=== PATIENT | male | born 1955 | race Caucasian/White ===

== ENCOUNTER 2017-09-20 13:47 | Emergency (ER) | payer OTHER, SELFPAY ==
[2017-09-20 13:48] VITALS: BP 145/93; PULSE 82; RESP 16; TEMP 36.7; O2SAT 96; BMI 25.4
--- NOTE | 2017-09-20 14:30 | RAD_ITS ---
STUDY: X-RAY - LEFT HAND REASON FOR EXAM: Male, 61 years old. Address post fall on a cap this 2 weeks ago concerning performed body TECHNIQUE: 3 view(s) of the hand. COMPARISON: None. FINDINGS: Normal radiocarpal articulation. Normal distal radioulnar joint. Normal visualized carpal bones. Normal carpal articulations Normal carpometacarpal articulation of the thumb. Normal second through fifth carpometacarpal joints. Normal metacarpi. 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 Normal interphalangeal joint of the thumb. 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 A radiopaque foreign body is not definitively identified. There does appear to be mild soft tissue swelling. Normal metacarpophalangeal joints of the second through fifth fingers. Normal proximal and distal interphalangeal joints of the second through fifth fingers. Normal phalanges of the second through fifth fingers. The soft tissue structures are unremarkable. RAD/Hand Min 3 Views IMPRESSION: Arthrosis. 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 No visualized radiopaque foreign body. Mild soft tissue swelling. Electronically Signed: Angélica Mendoza MD at 16:19 EDT Tel , Service support ,
--- NOTE | 2017-09-20 14:41 | ED.DCSUM_ITS ---
- ER Visit Summary Date of Service: 09/20/17 Chief Complaint: [] 2 week old foreign body left thumb History of Present Illness: The patient is a 61 M [] patient reports 2 weeks ago he was hiking in [place] and a cactus spine struck him to the right thumb possibly 2 he believes it is retained, he is [id number] he reports intermittent drainage to the area no redness or warmth he reports that lesion simply will not improve and he presents for evaluation his other complaints Physical Examination: [] There is a blister type lesion likely represents possible insertion point for 1 or 2 of these cactus spines, there is some nodularity to the flexor surface of the thumb but no warmth no redness he is able to flex at the IP joint and MCP joint the nail is intact there is no signs of gross tenosynovitis or felon or anything acute Test Results: [] Emergency Department Course and Treatment: [] All the above the patient have explained this lesions been there for 2 weeks it is best that he be seen by hand services for further management and x-rays be obtained I recommended antibiotics but he declined that he will be referred to Dr. ma be the x-ray will be obtained he will be given a copy of the film and he will see Dr. stovall for outpatient management and return for change in symptoms Treatment Plan: [] Disposition: [] Home stable Impression: [] 2-week-old retained foreign body as above left thumb This note was generated with [employer] dictation software. It may contain incorrect words, spelling, and punctuation that were not noted in review of the chart prior to signing ED Disposition - Plan for ED Patient: Chief Complaint: Foreign Body Referrals: Tolu Mcmillan MD [Primary Care Provider] -
--- NOTE | 2017-09-20 14:41 | ED.DEP ---
ED Disposition - Plan for ED Patient: Chief Complaint: Foreign Body Instructions: ED Foreign Body Soft Tissue Referrals: Tolu Mcmillan MD [Primary Care Provider] - Bob Flowers MD [STAFF PHYSICIAN] - Dennis Palacio MD [STAFF PHYSICIAN] - Additional Instructions: Follow-up with Dr. Green or Dr. Palacio for further evaluation of left thumb
== END 2017-09-20 15:18 | disposition home or self-care (01) ==
LOC: ED 14:47
PROVIDERS: Emergency Provider Emergency Medicine; Family Provider Family Medicine; PCP Family Medicine
DX: S60.352A Superficial foreign body of left thumb, initial encounter (principal); W60.XXXA Contact with nonvenomous plant thorns and spines and sharp leaves, initial encounter; Y93.01 Activity, walking, marching and hiking; Y92.9 Unspecified place or not applicable
CPT/HCPCS: 73130; 99282

== ENCOUNTER 2024-11-17 11:05 | Emergency (ER) | payer MEDICARE, OTHER, SELFPAY ==
[2024-11-17 11:05] VITALS: BP 108/60; PULSE 65; RESP 16; TEMP 36.6; O2SAT 97; BMI 25.9
--- NOTE | 2024-11-17 11:19 | EDS_ITS ---
HPI <CONCEPCIÓN Gaitan - Last Filed: 11/17/24 12:40> History of Present Illness Chief Complaint: Laceration Narrative Narrative: Patient resenting today due to a laceration to his left index finger after he was working with a boom lift and was trying to adjust the lever when it snapped and cut his finger. He is not on any blood thinners, his tetanus is not up-to-date, he is left-handed, he denies any other injury. PFSH <CONCEPCIÓN Gaitan - Last Filed: 11/17/24 12:40> [facility] Medical History no medical history Home Medications ?Medication ?Instructions ?Recorded ?Last Taken ?Type NK 09/20/17 Unknown History Allergy/AdvReac Type Severity Reaction Status Date / Time No Known Allergies Allergy Verified 11/17/24 11:05 Social History Smoking Status: Never smoker ROS <CONCEPCIÓN Gaitan - Last Filed: 11/17/24 12:40> ROS ED Constitutional Constitutional ED: Denies chills or fever(s) Cardiovascular Cardiovascular: Denies chest pain Respiratory/Chest Respiratory/Chest: Denies dyspnea Musculoskeletal Musculoskeletal: Denies arthralgias Integumentary Reports laceration Neurologic Neurologic: Denies paresthesias EXAM <CONCEPCIÓN Gaitan - Last Filed: 11/17/24 12:40> Physical Exam Const Vital Signs: 11/17/24 11:05 11/17/24 12:35 Temperature 97.9 F Temperature Source Oral Pulse Rate 65 67 Respiratory Rate 16 16 Blood Pressure 108/60 112/74 Blood Pressure Mean 76 86 Pulse Ox 97 99 Oxygen Delivery Method Room Air Positive well nourished, well developed and no apparent distress General Appearance ED: well developed HEENT Reports normocephalic and head/scalp atraumatic Mouth ED: Yes moist mucous membranes normal Eyes PERRL and EOMs intact bilaterally Neck full ROM and supple Chest Wall inspection of chest normal Resp normal respiratory effort and clear to auscultation bilaterally Cardio regular rate and regular rhythm Back/Spine normal ROM and normal to inspection Extremity full ROM Extremity Narrative: 2.5 cm full-thickness linear laceration to the palmar aspect of the left middle phalanx index finger. Left radial pulse 2+, good cap refill, sensation intact. Patient can flex and extend at the MCP, PIP, DIP joints, no obvious tendon injury Neuro oriented x3, CN's II-XII intact bilaterally, moves all extremities, no focal motor deficits and no sensory deficits noted Sensorium / Orientation: awake and alert Psych mental status grossly normal and thought process normal Skin Skin Narrative: Aside from laceration to the index finger no other obvious rashes or lesions noted. <Dr. Dm Burrows MD - Last Filed: 11/17/24 11:54> Physical Exam Const Vital Signs: 11/17/24 11:05 11/17/24 12:35 Temperature 97.9 F Temperature Source Oral Pulse Rate 65 67 Respiratory Rate 16 16 Blood Pressure 108/60 112/74 Blood Pressure Mean 76 86 Pulse Ox 97 99 Oxygen Delivery Method Room Air PROC <CONCEPCIÓN Gaitan - Last Filed: 11/17/24 12:40> Procedures Lacerations Laceration: Length: 2.5 cm Depth: Sub Q Shape: Linear Prep: Chlorhexadine Laceration repair: Digital block, Irrigated, Lidocaine and Skin sutures Number of Sutures/Bryson: 7 Suture Information: Ethilon, Simple and 4-0 Comment: Wound then bandaged with bacitracin ointment MDM <CONCEPCIÓN Gaitan - Last Filed: 11/17/24 12:40> [facility] Narrative Medical decision making narrative: Patient presenting today with a laceration to his left index finger after getting it caught on a latch from a boom lift. This will require suture repair. X-ray obtained to assess for fracture and is negative. There is no active bleeding. No tendon injury. He tolerated procedure well. He is to have sutures removed in 7 days. Wound care instructions discussed with him. He will be discharged home in stable condition. I have personally performed a face to face assessment of the patient and have reviewed the SHAWN Note. I performed a substantive portion of the visit including all aspects of the following. My raines findings include: History is [68-year-old male [id number] was working at home cleaning out his gutters. He was using a broom lift. Latch on it released and lacerated his left index finger. He is left-hand dominant. Unsure of his last tetanus was to be updated. Denies any other injuries or complaints.] Exam is [well-appearing 60-year-old male. Vital signs stable afebrile. No distress. H EENT exam pupils round reactive light. No trauma nose face or scalp. Neck nontender. Back nontender. Lungs clear equal symmetrical. Heart regular rhythm rate about 65. No murmur. Chest wall ribs nontender. Abdomen soft nontender. Moving all 4 extremities. Neurovascularly intact. Left index finger on the palmar side along the PIP there is a laceration involving the skin and subcu tissue. There is dried blood. Minimal active bleeding. No pulsatile bleeding. No foreign body or infection. He has full extension to all digits of the left hand full flexion. There does not appear to be any bony deformity or tendon laceration. Normal touch sensation and cap refill distally. Otherwise exam unremarkable. He is awake and alert. No focal motor or sensory deficits.] Medical Decision Making [68-year-old left finger laceration x-ray was obtained shows no fracture. No foreign body. Will be locally anesthetized washed out and cleaned well and sutured closed.] Other additions or changes: [None] Radiography X-Ray: Read by ED Physician Diagnostic Testing: Clinical Impression(s) from Imaging Studies Finger X-Ray 11/17/24 11:20 IMPRESSION: No radiopaque foreign body is seen. Mild degenerative changes seen of the visualized left 2nd and 3rd distal interphalangeal joints and of the partially visualized 1st carpal-metacarpal joint. Minimal degenerative changes are seen elsewhere. No fracture or dislocation is noted. If clinical concern persists, short-term follow-up imaging may be obtained to rule out a currently occult fracture. Reading Location: [id number] <Dr. Dm Burrows MD - Last Filed: 11/17/24 11:54> [facility] Narrative Medical decision making narrative: I have personally performed a face to face assessment of the patient and have reviewed the SHAWN Note. I performed a substantive portion of the visit including all aspects of the following. My raines findings include: History is [68-year-old male [id number] was working at home cleaning out his gutters. He was using a broom lift. Latch on it released and lacerated his left index finger. He is left-hand dominant. Unsure of his last tetanus was to be updated. Denies any other injuries or complaints.] Exam is [well-appearing 60-year-old male. Vital signs stable afebrile. No distress. H EENT exam pupils round reactive light. No trauma nose face or scalp. Neck nontender. Back nontender. Lungs clear equal symmetrical. Heart regular rhythm rate about 65. No murmur. Chest wall ribs nontender. Abdomen soft nontender. Moving all 4 extremities. Neurovascularly intact. Left index finger on the palmar side along the PIP there is a laceration involving the skin and subcu tissue. There is dried blood. Minimal active bleeding. No pulsatile bleeding. No foreign body or infection. He has full extension to all digits of the left hand full flexion. There does not appear to be any bony deformity or tendon laceration. Normal touch sensation and cap refill distally. Otherwise exam unremarkable. He is awake and alert. No focal motor or sensory deficits.] Medical Decision Making [68-year-old left finger laceration x-ray was obtained shows no fracture. No foreign body. Will be locally anesthetized washed out and cleaned well and sutured closed.] Other additions or changes: [None] History & Record Review Discussion w/independent historian: Patient Radiography Diagnostic Testing: Clinical Impression(s) from Imaging Studies Finger X-Ray 11/17/24 11:20 IMPRESSION: No radiopaque foreign body is seen. Mild degenerative changes seen of the visualized left 2nd and 3rd distal interphalangeal joints and of the partially visualized 1st carpal-metacarpal joint. Minimal degenerative changes are seen elsewhere. No fracture or dislocation is noted. If clinical concern persists, short-term follow-up imaging may be obtained to rule out a currently occult fracture. Reading Location: [address] Leg index finger x-ray, 3 views, interpreted by myself shows no acute fracture. No dislocation. No foreign body. Soft tissue swelling. Discharge Plan Triage Chief Complaint: Laceration ED Midlevel Provider: Rebecca Ramsay ED Provider: Dm Burrows Dx/Rx/DC Orders Clinical Impression: Finger laceration Instructions: ED Laceration, Hand: All Closures Prescriptions: No Action NK Primary Care Provider: Swati Melo NP Referrals: Swati Melo COMPUTING ARCHITECT, COMPUTING ARCHITECT-C [Primary Care Provider] - 7 Days for suture removal Activity Restrictions/Additional Instructions: Follow-up with your PCP in 7 days for suture removal, return for any signs of infection. Print Language: Mohawk Disposition Disposition: Home, Self Care Discharge Date/Time: 11/17/24 12:36
--- NOTE | 2024-11-17 11:20 | RAD_ITS ---
PROCEDURE: FINGER(S) MIN 2 VIEWS 11/17/2024 REASON FOR EXAM: LACERATION INDEX FINGER TECHNIQUE: Three-view left 2nd finger: COMPARISON: None. RAD/Finger(s) Min 2 Views IMPRESSION: No radiopaque foreign body is seen. Mild degenerative changes seen of the visualized left 2nd and 3rd distal interp halangeal joints and of the partially visualized 1st carpal-metacarpal joint. Minimal degenerative changes are seen elsewhere. No fracture or dislocation is noted. If clinical concern persists, short-term follow-up imaging may be obtained to r ule out a currently occult fracture. Reading Location: [id number]
[2024-11-17] MEDS: Diphth,Pertuss(Acell),Tet Vac 0.5 ML Vial IM (11:35)
[2024-11-17 12:35] VITALS: BP 112/74; PULSE 67; RESP 16; O2SAT 99
--- OUTSIDE RECORDS SUMMARY | 2024-11-17 20:47 | XMS RPT_ITS | CCD ---
Author Organization [facility] Care Team Providers Care Service Line Coordinator Name Role Phone Tolu Mcmillan Unavailable Unavailable Gary Calderón Unavailable Unavailable LORSON STONE POLISHER[employer]SERGEANT MISSILE CREWMAN, SWATI Primary Care Physician ROCK STONE POLISHER-SERGEANT MISSILE CREWMAN, SUSAN Attending Unavailabl e LORSON STONE POLISHER-SERGEANT MISSILE CREWMAN, [place] Primary Care Unavail able LORSON STONE POLISHER-SERGEANT MISSILE CREWMAN, [place] Primary Care Unavail able LORSON STONE POLISHER-SERGEANT MISSILE CREWMAN, SWATI Attending Unavail able LORSON STONE POLISHER-SERGEANT MISSILE CREWMAN, [place] Primary Care Unavail able LORSON STONE POLISHER-SERGEANT MISSILE CREWMAN, SWATI Attending Unavail able LORSON STONE POLISHER-SERGEANT MISSILE CREWMAN, SWATI Attending Unavail able LORSON STONE POLISHER-SERGEANT MISSILE CREWMAN, [place] Primary Care Unavail able ROCK STONE POLISHER-SERGEANT MISSILE CREWMAN, SUSAN Attending Unavailabl e LORSON STONE POLISHER-SERGEANT MISSILE CREWMAN, [place] Primary Care Unavail able DR CY MELVIN Attending Unavailable LORSON STONE POLISHER-SERGEANT MISSILE CREWMAN, [facility] Unavail able Markos NORRIS, Dr. Chaidez Referring Provider Dr. Dm Burrows MD Emergency Provider Lorie [employer], [place] Primary Care Provider Medications Current Medications Medication Drug Class(es) Dates Sig (Normalized) Sig (Original) 0.5 ML tirzepatide 5 MG/ML Auto-Injector [Mounjaro] (1 source) Start: 03-08-2024 inject 1 dose by subcutaneous injection every week Mounjaro 2.5 mg/0.5 mL subcutaneous solution Dose : 2.5 mg =, Subcutaneous, qWeek, rotate injection sites, # 4 EA, 11 Refill(s), Pharmacy: [facility], 182, cm, 03/08/24 11:26:00 EDT, Height, kg, 03/08/24 11:26:00 EDT, Dosing Weight Start Date: 03/08/24 Status: Ordered Quantity: 4.0 Unit: EA Repeat number: 12 azithromycin 500 mg oral tablet (1 source) Macrolide Antimicrobial Start: 12-02-2022 End: 12-05-2022 azithromycin 500 mg oral tablet Dose : 500 mg = 1 tab(s), Oral, qDay, X 3 day(s), # 3 tab(s), 0 Refill(s), 12/05/22 12:30:00 EDT, [facility]: [facility] #[id number], 184.6, cm, 12/01/22 13:09:00 EDT, Height, 88.9 Start Date: 12/02/22 Stop Date: 12/05/22 Status: Ordered Chondroitin Sulfates / Glucosamine (1 source) Start: 08-11-2023 Glucosamine Chondroitin Oral, qDay, 0 Refill(s) Start Date: 08/11/23 Status: Ordered Repeat number: 1 DME MISCellaneous (4 sources) Start: 01-02-2021 DME MISCellaneous See Instructions, Dexcom sensor--replace every 10 days. #3/month and 11 refills Dx: e11.9, # 1 EA, 0 Refill(s), [facility], 184.6, cm, 01/02/21 8:46:00 EDT, Height, 88.6, kg, 01/02/21 8:46:00 EDT, Dosing Weight Start Date: 01/02/21 Status: Ordered 0.5 ml dulaglutide 3 mg/ml auto-injector (3 sources) GLP-1 Receptor Agonist Start: 05-01-2023 End: 08-29-2023 Trulicity Pen 1.5 mg/0.5 mL subcutaneous solution Dose : 1.5 mg =, Subcutaneous, , # 4 EA, 3 Refill(s), [id number], 184.6, cm, 12/22/22 10:33:00 EDT, Height, kg, 12/22/22 10:33:00 EDT, Dosing Weight Start Date: 05/01/23 Stop Date: 08/29/23 Status: Ordered Start: 09-22-2022 End: 01-20-2023 Trulicity Pen 1.5 mg/0.5 mL subcutaneous solution Dose : 1.5 mg =, Subcutaneous, , # 4 EA, 3 Refill(s), Pharmacy: [facility]/pharmacy #[id number], 184.6, cm, 09/22/22 11:32:00 EDT, Height Start Date: 09/22/22 Stop Date: 01/20/23 Status: Ordered Start: 06-23-2022 inject 0.5 mL by sub cutaneous injection every week Trulicity Pen 0.75 mg/0.5 mL subcutaneous solution Dose : 0.75 mg = 0.5 mL, Subcutaneous, qWeek, # 2.5 mL, 11 Refill(s), 0.5 mL/Pen, Pharmacy: [facility] #[id number], 184.6, cm, 06/23/22 11:00:00 EST, Height, kg, 06/23/22 11:00:00 EST, Dosing Weight Start Date: 06/23/22 Status: Ordered Fish Oils (3 sources) Start: 01-02-2021 take 1 capsule by mouth once daily omega-3 fish oil 1000 mg oral capsule mg = cap(s), Oral, qDay, 0 Refill(s) Start Date: 01/02/21 Status: Ordered FreeStyle Lester 3 Sensor (1 source) Start: 01-05-2024 FreeStyle Libr e 3 Sensor See Instructions, Freestyle lester 3 sensors; Place once sensor to the back of the upper arm every 14 days. Use reader or phone leilani for daily blood sugar checks. 1 month supply Dx: Diabetes Mellitus type 2 E11.9, # 2 EA, 3 Refill(s), Pharmacy: [facility], Type 2 diabetes mellitus, 182, cm, 11/11/23 11:40:00 EDT, Height, 86.9, kg, 11/11/23 11:40:00 EDT, Dosing Weight Start Date: 01/05/24 Status: Ordered Quantity: 2.0 Unit: EA Repeat number: 4 Indications: Type 2 diabetes mellitus without complications; glipiZIDE 10 mg oral tablet (1 source) Sulfonylurea Start: 03-08-2024 glipiZIDE 10 m g oral tablet Dose : 10 mg = 1 tab(s), Oral, BIDAC, # 60 tab(s), 3 Refill(s), Pharmacy: [facility], 182, cm, 03/08/24 11:26:00 EDT, Height, kg, 03/08/24 11:26:00 EDT, Dosing Weight Start Date: 03/08/24 Status: Ordered Quantity: 60.0 Unit: tab(s) Repeat number: 4 metFORMIN hydrochloride 500 mg oral tablet (2 sources) Biguanide Start: 06-23-2022 metFORMIN 500 mg oral tablet (IR) Dose : 1,000 mg = 2 tab(s), Oral, BID, in lieu of provider absence, # 120 tab(s), 3 Refill(s), [facility] #[id number], 184.6, cm, 06/23/22 11:00:00 EST, Height, kg, 06/23/22 11:00:00 EST, Dosing Weight Start Date: 06/23/22 Status: Ordered Start: 03-06-2022 metFORMIN 500 mg oral tablet (IR) Dose : 1,000 mg = 2 tab(s), Oral, BID, # 360 tab(s), 0 Refill(s), [facility] #[id number], 184.6, cm, 01/02/21 8:46:00 EDT, Height, kg, 01/02/21 8:46:00 EDT, Dosing Weight Start Date: 03/06/22 Status: Ordered 0.25 mg, 0.5 mg dose 1.5 ml semaglutide 1.34 mg/ml pen injector (1 source) Start: 03-26-2022 Ozempic 2 mg/1 .5 mL (0.25 mg or 0.5 mg dose) subcutaneous solution 0.25 mg, Subcutaneous, qWeek, rotate injection sites, # 1 EA, 3 Refill(s), [facility]: [facility] #[id number], 184.6, cm, 03/26/22 11:07:00 EDT, Height Start Date: 03/26/22 Status: Ordered Vital-D oral tablet (5 sources) Start: 06-07-2020 take 1 tablet by mouth once daily Vital-D oral tablet Dose = 1 tab(s), Oral, qDay, # 100 tab(s), 0 Refill(s) Start Date: 06/07/20 Status: Ordered Quantity: 100.0 Unit: tab(s) Repeat number: 1 Start: 06-07-2020 take 1 tablet by gumaro th once daily Vital-D oral tablet Dose = 1 tab(s), Oral, qDay, # 100 tab(s), 0 Refill(s) Start Date: 06/07/20 Status: Ordered vitamin B12 (3 sources) Vitamin B12 Start: 06-07-2020 Vitamin B12 0 Refill(s) Start Date: 06/07/20 Status: Ordered Zinc (3 sources) Start: 06-07-2020 take 1 mg by mouth once daily Zinc mg =, Oral, qDay, 0 Refill(s) Start Date: 06/07/20 Status: Ordered Completed/Discontinued Medications Medication Drug Class(es) Dates Sig (Normalized) Sig (Original) losartan potassium 25 mg oral tablet (1 source) Angiotensin 2 Receptor Riley Start: 11-11-2023 End: 02-09-2024 losartan 25 mg oral tablet Dose : 25 mg = 1 tab(s), Oral, Daily, # 30 tab(s), 2 Refill(s), Pharmacy: [facility], 182, cm, 11/11/23 11:40:00 EDT, Height, kg, 11/11/23 11:40:00 EDT, Dosing Weight Start Date: 11/11/23 Stop Date: 02/09/24 Status: Ordered Quantity: 30.0 Unit: tab(s) Repeat number: 3 Problems Problem Classification Problem Date Documented Da te Episodic/Chronic Cardiac dysrhythmias (3 sources) Palpitations 09-22-2022 Episodic Diabetes mellitus with complications (3 sources) 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 Diabetes mellitus without complication (6 sources) Diabetes mellitus; Translations: [Type 2 diabetes mellitus without complication] 10-16-2017 Chronic Disorders of lipid metabolism (5 sources) Pure hyperglyceridemia 06-07-2020 Chronic Essential hypertension (1 source) Hypertensive disorder 11-11-2023 Chronic Fluid and electrolyte disorders (5 sources) Hyperkalemia 01-02-2021 Episodic Open wounds of extremities (1 source) Laceration of finger; Translations: [Laceration without foreign body of unspecified finger without damage to nail, initial encounter] 11-17-2024 Episodic Other circulatory disease (1 source) Elevated blood pressure 08-11-2023 Episodic Other screening for suspected conditions (not mental disorders or infectious disease) (1 source) Abnormal renal function 08-11-2023 Episodic Skin and subcutaneous tissue infections (3 sources) Carbuncle 06-23-2022 Episodic Unclassified (6 sources) Patient encounter status 03-26-2022 Unclassified (5 sources) Statin not tolerated (context-dependent category) 01-02-2021 Results Test Name Value Interpretation Reference Range Facility XR SPINE LUMBAR W/OBLIQUES 4 VIEWSon 09-28-2024 XR SPINE LUMBAR W/OBLIQUES 4 VIEWS ORIGINAL EXAMINATION: 5 XRAY VIEWS OF THE LUMBAR SPINE 09/28/2024 9:41 am COMPARISON: None. HISTORY: ORDERING SYSTEM PROVIDED HISTORY: Reason for Exam: sciatica Low back pain FINDINGS: 5 degree dextroscoliosis noted at the thoracolumbar junction. There is mild generalized disc space narrowing throughout the lumbar spine and moderate diffuse facet arthropathy. No spondylolysis, spondylolisthesis or acute vertebral body fracture apparent. Sacroiliac joints are preserved. IMPRESSION: 5 degree dextroscoliosis thoracolumbar junction and diffuse degenerative disc disease and facet arthropathy. Interpreted by: Abe Colindres DO Preliminary Report By: Abe Colindres DO Electronically signed By Abe Colinrdes DO Dictated Date: 09/28/2024 12:59:46 PM Prelim Date: 09/28/2024 1:00:34 PM Sign Date: 09/28/2024 1:00:34 PM Ordering Provider: CY MELVIN [facility] [place] .GFRon 11-10-2023 GFR 96 ml/min/1.73sqm Normal [facility] ([place]) Comment on above: Result Comment: GFR Population mean for , Non- Americans Ages 20-29 = 116 mL/min/1.73 sq.m. Ages 30-39 = 107 mL/min/1.73 sq.m. Ages 40-49 = 99 mL/min/1.73 sq.m. Ages 50-59 = 93 mL/min/1.73 sq.m. Ages 60-69 = 85 mL/min/1.73 sq.m. Ages 70+ = 75 mL/min/1.73 sq.m. Chronic Kidney Disease: Less than 60 mL/min/1.73 square meters End Stage Renal Disease: Less than 15 mL/min/1.73 square meters Performed By: #### L IP, GFR, CMP, ANEU, CBC, ADIFF #### [address] [address] GFR Non- 79 ml/min/1.73sqm Normal [facility] ([place]) Comment on above: Result Comment: GFR Population mean for , Non- Americans Ages 20-29 = 116 mL/min/1.73 sq.m. Ages 30-39 = 107 mL/min/1.73 sq.m. Ages 40-49 = 99 mL/min/1.73 sq.m. Ages 50-59 = 93 mL/min/1.73 sq.m. Ages 60-69 = 85 mL/min/1.73 sq.m. Ages 70+ = 75 mL/min/1.73 sq.m. Chronic Kidney Disease: Less than 60 mL/min/1.73 square meters End Stage Renal Disease: Less than 15 mL/min/1.73 square meters Performed By: #### L IP, GFR, CMP, ANEU, CBC, ADIFF #### [address] [address] A1Con 11-10-2023 HbA1c (Bld) [Mass fraction] 8.6 % High 4.3-6.4 [facility] ([place]) Comment on above: Performed By: #### C MP, GFR, A1C, LIPID #### [address] [address] CMPon 11-10-2023 Albumin Level 4.1 G/dL Normal 3.4-4.8 [facility] ([place]) Comment on above: Performed By: #### C MP, GFR, A1C, LIPID #### [address] [address] Albumin/Globulin [Mass ratio] 1.1 {ratio} Normal 1.1-2.5 [facility] ([place]) Comment on above: Performed By: #### C MP, GFR, A1C, LIPID #### [address] [address] ALP [Catalytic activity/Vol] 66 U/L Normal 40-135 [facility] ([place]) Comment on above: Performed By: #### C MP, GFR, A1C, LIPID #### [address] [address] ALT [Catalytic activity/Vol] 38 U/L Normal 16-63 [facility] ([place]) Comment on above: Performed By: #### C MP, GFR, A1C, LIPID #### [address] [address] AST [Catalytic activity/Vol] 30 U/L Normal 10-40 [facility] ([place]) Comment on above: Performed By: #### C MP, GFR, A1C, LIPID #### [address] [address] Bili Total 0.8 mg/dL Normal 0.2-1.0 [facility] ([place]) Comment on above: Result Comment: Use of this assay is not recommended for patients undergoing treatment with eltrombopag due to the potential for falsely elevated results. Performed By: #### C MP, GFR, A1C, LIPID #### [address] [address] BUN/Creatinine Ratio 22 ratio Normal 7-27 [facility] ([place]) Comment on above: Performed By: #### C MP, GFR, A1C, LIPID #### [address] [address] Calcium [Mass/Vol] 8.7 mg/dL Normal 8.4-10.2 [facility] ([place]) Comment on above: Performed By: #### C MP, GFR, A1C, LIPID #### [address] [address] Chloride [Moles/Vol] 101 mmol/L Normal 98-107 [facility] ([place]) Comment on above: Performed By: #### C MP, GFR, A1C, LIPID #### [address] [address] CO2 [Moles/Vol] 28 mmol/L Normal 23-31 [facility] ([place]) Comment on above: Performed By: #### C MP, GFR, A1C, LIPID #### [address] [address] Creatinine [Mass/Vol] 0.95 mg/dL Normal 0.70-1.30 [facility] ([place]) Comment on above: Performed By: #### C MP, GFR, A1C, LIPID #### [address] [address] Electrolyte Balance 10.0 mEq/L Normal 4.0-15.0 [facility] ([place]) Comment on above: Performed By: #### C MP, GFR, A1C, LIPID #### Jen[place] [address] [address] Globulin 3.6 G/dL Normal [facility] ([place]) Comment on above: Performed By: #### C MP, GFR, A1C, LIPID #### [address] [address] Glucose [Mass/Vol] 129 mg/dL High 80-115 [facility] ([place]) Comment on above: Performed By: #### C MP, GFR, A1C, LIPID #### [address] [address] Potassium [Moles/Vol] 5.0 mmol/L Normal 3.5-5.1 [facility] ([place]) Comment on above: Performed By: #### C MP, GFR, A1C, LIPID #### [address] [address] Sodium [Moles/Vol] 139 mmol/L Normal 136-145 [facility] ([place]) Comment on above: Performed By: #### C MP, GFR, A1C, LIPID #### [address] [address] Total Protein 7.7 G/dL Normal 6.4-8.2 [facility] ([place]) Comment on above: Performed By: #### C MP, GFR, A1C, LIPID #### [address] [address] Urea nitrogen [Mass/Vol] 21 mg/dL High 7-18 [facility] ([place]) Comment on above: Performed By: #### C MP, GFR, A1C, LIPID #### [address] [address] LIPIDon 11-10-2023 Cholesterol [Mass/Vol] 180 mg/dL Normal 0-200 [facility] ([place]) Comment on above: Result Comment: Chol esterol Reference Interval: Less than 200 Desirable 200-239 Borderline high risk 240 and above High risk Performed By: #### L IP, GFR, CMP, ANEU, CBC, ADIFF #### [address] [address] Cholesterol in HDL [Mass/Vol] 42 mg/dL Normal 40-60 [facility] ([place]) Comment on above: Performed By: #### L IP, GFR, CMP, ANEU, CBC, ADIFF #### [place] [place], [place] [address] Cholesterol in LDL [Mass/Vol] 104 mg/dL Normal 0-130 [facility] ([place]) Comment on above: Performed By: #### L IP, GFR, CMP, ANEU, CBC, ADIFF #### [address] [address] Triglyceride [Mass/Vol] 171 mg/dL High 0-150 [facility] ([place]) Comment on above: Result Comment: Trig lyceride Reference Interval: Less than 150 Normal 150-199 Borderline high risk 200-499 High risk 500 or higher Very high risk Performed By: #### L IP, GFR, CMP, ANEU, CBC, ADIFF #### [address] [address] .GFRon 08-10-2023 GFR 71 ml/min/1.73sqm Normal [facility] ([place]) Comment on above: Result Comment: GFR Population mean for , Non- Americans Ages 20-29 = 116 mL/min/1.73 sq.m. Ages 30-39 = 107 mL/min/1.73 sq.m. Ages 40-49 = 99 mL/min/1.73 sq.m. Ages 50-59 = 93 mL/min/1.73 sq.m. Ages 60-69 = 85 mL/min/1.73 sq.m. Ages 70+ = 75 mL/min/1.73 sq.m. Chronic Kidney Disease: Less than 60 mL/min/1.73 square meters End Stage Renal Disease: Less than 15 mL/min/1.73 square meters Performed By: #### L IP, GFR, CMP, ANEU, CBC, ADIFF #### [address] [address] GFR Non- 59 ml/min/1.73sqm Normal [facility] ([place]) Comment on above: Result Comment: GFR Population mean for , Non- Americans Ages 20-29 = 116 mL/min/1.73 sq.m. Ages 30-39 = 107 mL/min/1.73 sq.m. Ages 40-49 = 99 mL/min/1.73 sq.m. Ages 50-59 = 93 mL/min/1.73 sq.m. Ages 60-69 = 85 mL/min/1.73 sq.m. Ages 70+ = 75 mL/min/1.73 sq.m. Chronic Kidney Disease: Less than 60 mL/min/1.73 square meters End Stage Renal Disease: Less than 15 mL/min/1.73 square meters Performed By: #### L IP, GFR, CMP, ANEU, CBC, ADIFF #### [address] [address] A1Con 08-10-2023 HbA1c (Bld) [Mass fraction] 9.5 % High 4.3-6.4 [facility] ([place]) Comment on above: Performed By: #### L IP, GFR, CMP, ANEU, CBC, ADIFF #### [address] [address] CMPon 08-10-2023 Albumin Level 3.6 G/dL Normal 3.4-4.8 [facility] ([place]) Comment on above: Performed By: #### L IP, GFR, CMP, ANEU, CBC, ADIFF #### [address] [address] Albumin/Globulin [Mass ratio] 1.0 {ratio} Low 1.1-2.5 [facility] ([place]) Comment on above: Performed By: #### L IP, GFR, CMP, ANEU, CBC, ADIFF #### [address] [address] ALP [Catalytic activity/Vol] 71 U/L Normal 40-135 [facility] ([place]) Comment on above: Performed By: #### L IP, GFR, CMP, ANEU, CBC, ADIFF #### [address] [address] ALT [Catalytic activity/Vol] 33 U/L Normal 16-63 [facility] ([place]) Comment on above: Performed By: #### L IP, GFR, CMP, ANEU, CBC, ADIFF #### [address] [address] AST [Catalytic activity/Vol] 15 U/L Normal 10-40 [facility] ([place]) Comment on above: Performed By: #### L IP, GFR, CMP, ANEU, CBC, ADIFF #### [address] [address] Bili Total 0.8 mg/dL Normal 0.2-1.0 [facility] ([place]) Comment on above: Result Comment: Use of this assay is not recommended for patients undergoing treatment with eltrombopag due to the potential for falsely elevated results. Performed By: #### L IP, GFR, CMP, ANEU, CBC, ADIFF #### [address] [address] BUN/Creatinine Ratio 15 ratio Normal 7-27 [facility] ([place]) Comment on above: Performed By: #### L IP, GFR, CMP, ANEU, CBC, ADIFF #### [address] [address] Calcium [Mass/Vol] 8.8 mg/dL Normal 8.4-10.2 [facility] ([place]) Comment on above: Performed By: #### L IP, GFR, CMP, ANEU, CBC, ADIFF #### [address] [address] Chloride [Moles/Vol] 99 mmol/L Normal 98-107 [facility] ([place]) Comment on above: Performed By: #### L IP, GFR, CMP, ANEU, CBC, ADIFF #### [address] [address] CO2 [Moles/Vol] 29 mmol/L Normal 23-31 [facility] ([place]) Comment on above: Performed By: #### L IP, GFR, CMP, ANEU, CBC, ADIFF #### [address] [address] Creatinine [Mass/Vol] 1.23 mg/dL Normal 0.70-1.30 [facility] ([place]) Comment on above: Performed By: #### L IP, GFR, CMP, ANEU, CBC, ADIFF #### [place] [address] Electrolyte Balance 7.0 mEq/L Normal 4.0-15.0 [facility] ([place]) Comment on above: Performed By: #### L IP, GFR, CMP, ANEU, CBC, ADIFF #### [place] [address] Globulin 3.5 G/dL Normal [facility] ([place]) Comment on above: Performed By: #### L IP, GFR, CMP, ANEU, CBC, ADIFF #### [address] [address] Glucose [Mass/Vol] 276 mg/dL High 80-115 [facility] ([place]) Comment on above: Performed By: #### L IP, GFR, CMP, ANEU, CBC, ADIFF #### [place] [address] Potassium [Moles/Vol] 5.4 mmol/L High 3.5-5.1 [facility] ([place]) Comment on above: Performed By: #### L IP, GFR, CMP, ANEU, CBC, ADIFF #### [place] [address] Sodium [Moles/Vol] 135 mmol/L Low 136-145 [facility] ([place]) Comment on above: Performed By: #### L IP, GFR, CMP, ANEU, CBC, ADIFF #### [address] [place], [place] [address] Total Protein 7.1 G/dL Normal 6.4-8.2 [facility] ([place]) Comment on above: Performed By: #### L IP, GFR, CMP, ANEU, CBC, ADIFF #### [place] [address] [place], [place] [address] Urea nitrogen [Mass/Vol] 19 mg/dL High 7-18 [facility] ([place]) Comment on above: Performed By: #### L IP, GFR, CMP, ANEU, CBC, ADIFF #### [facility] [address] [place], [place] [address] LABORATORYOrdered By: Joi Lala on 08-10-2023 Albumin DL <= 20 mg/L (U) [Mass/Vol] 3198 mcg/dL Invalid Interpretation Code AO ADM SS Albumin/Creatinine DL <= 20 mg/L (U) [Mass ratio] 17 mcg/mg Normal 0 - 30 mcg/mg AO ADM SS Creatinine (U) [Mass/Vol] 182.9 mg/dL Normal 39.0 - 259.0 mg/dL AO ADM SS Cholesterol [Mass/Vol] 201 mg/dL High 0 - 200 mg/dL AO ADM SS Comment on above: Interpretive Data: C holesterol Reference Interval: Less than 200 Desirable 200-239 Borderline high risk 240 and above High risk Cholesterol in HDL [Mass/Vol] 37 mg/dL Low 40 - 60 mg/dL AO ADM SS Cholesterol in LDL [Mass/Vol] 125 mg/dL Normal 0 - 130 mg/dL AO ADM SS Triglyceride [Mass/Vol] 193 mg/dL High 0 - 150 mg/dL AO ADM SS Comment on above: Interpretive Data: T riglyceride Reference Interval: Less than 150 Normal 150-199 Borderline high risk 200-499 High risk 500 or higher Very high risk LABORATORYOrdered By: SYSTEM SYSTEM on 08-10-2023 Albumin BCP dye [Mass/Vol] 3.6 G/dL Normal 3.4 - 4.8 G/dL AO ADM SS Albumin/Globulin [Mass ratio] 1.0 {ratio} Low 1.1 - 2.5 ratio AO ADM SS ALP [Catalytic activity/Vol] 71 U/L Normal 40 - 135 U/L AO ADM SS ALT With P-5'-P [Catalytic activity/Vol] 33 U/L Normal 16 - 63 U/L AO ADM SS AST With P-5'-P [Catalytic activity/Vol] 15 U/L Normal 10 - 40 U/L AO ADM SS Bilirubin [Mass/Vol] 0.8 mg/dL Normal 0.2 - 1 .0 mg/dL AO ADM SS Comment on above: Interpretive Data: U se of this assay is not recommended for patients undergoing treatment with eltrombopag due to the potential for falsely elevated results. Calcium [Mass/Vol] 8.8 mg/dL Normal 8.4 - 10. 2 mg/dL AO ADM SS Chloride [Moles/Vol] 99 mmol/L Normal 98 - 10 7 mmol/L AO ADM SS CO2 [Moles/Vol] 29 mmol/L Normal 23 - 31 mmol/L AO ADM SS Creatinine [Mass/Vol] 1.23 mg/dL Normal 0.70 - 1.30 mg/dL AO ADM SS Electrolyte Balance 7.0 mEq/L Normal 4.0 - 15 .0 mEq/L AO ADM SS GFR/1.73 sq M.predicted among blacks MDRD (S/P/Bld) [Vol rate/Area] 71 ml/min/1.73sqm Invalid Interpretation Code AO Chemistry S Comment on above: Interpretive Data: GFR Population mean for , Non- Americans Ages 20-29 = 116 mL/min/1.73 sq.m. Ages 30-39 = 107 mL/min/1.73 sq.m. Ages 40-49 = 99 mL/min/1.73 sq.m. Ages 50-59 = 93 mL/min/1.73 sq.m. Ages 60-69 = 85 mL/min/1.73 sq.m. Ages 70+ = 75 mL/min/1.73 sq.m. Chronic Kidney Disease: Less than 60 mL/min/1.73 square meters End Stage Renal Disease: Less than 15 mL/min/1.73 square meters GFR/1.73 sq M.predicted among non-blacks MDRD (S/P/Bld) [Vol rate/Area] 59 ml/min/1.73sqm Invalid Interpretation Code AO Chemistry S Comment on above: Interpretive Data: GFR Population mean for , Non- Americans Ages 20-29 = 116 mL/min/1.73 sq.m. Ages 30-39 = 107 mL/min/1.73 sq.m. Ages 40-49 = 99 mL/min/1.73 sq.m. Ages 50-59 = 93 mL/min/1.73 sq.m. Ages 60-69 = 85 mL/min/1.73 sq.m. Ages 70+ = 75 mL/min/1.73 sq.m. Chronic Kidney Disease: Less than 60 mL/min/1.73 square meters End Stage Renal Disease: Less than 15 mL/min/1.73 square meters Globulin 3.5 G/dL Invalid Interpretation Code AO ADM SS Glucose [Mass/Vol] 276 mg/dL High 80 - 115 mg/dL AO ADM SS HbA1c (Bld) [Mass fraction] 9.5 % High 4.3 - 6.4 % AO ADM SS Potassium [Moles/Vol] 5.4 mmol/L High 3.5 - 5.1 mmol/L AO ADM SS Protein [Mass/Vol] 7.1 G/dL Normal 6.4 - 8.2 G/dL AO ADM SS Sodium [Moles/Vol] 135 mmol/L Low 136 - 145 mmol/L AO ADM SS Urea nitrogen [Mass/Vol] 19 mg/dL High 7 - 18 mg/dL AO ADM SS Urea nitrogen/Creatinine [Mass ratio] 15 ratio Normal 7 - 27 ratio AO ADM SS LIPIDon 08-10-2023 Cholesterol [Mass/Vol] 201 mg/dL High 0-200 [facility] ([place]) Comment on above: Result Comment: Chol esterol Reference Interval: Less than 200 Desirable 200-239 Borderline high risk 240 and above High risk Performed By: #### L IP, GFR, CMP, ANEU, CBC, ADIFF #### [facility] [address] [place], [place] [address] Cholesterol in HDL [Mass/Vol] 37 mg/dL Low 40-60 [facility] ([place]) Comment on above: Performed By: #### L IP, GFR, CMP, ANEU, CBC, ADIFF #### [place] [address] [place], [place] [address] Cholesterol in LDL [Mass/Vol] 125 mg/dL Normal 0-130 [facility] ([place]) Comment on above: Performed By: #### L IP, GFR, CMP, ANEU, CBC, ADIFF #### [address] [place] [place], [place] [address] Triglyceride [Mass/Vol] 193 mg/dL High 0-150 [facility] ([place]) Comment on above: Result Comment: Trig lyceride Reference Interval: Less than 150 Normal 150-199 Borderline high risk 200-499 High risk 500 or higher Very high risk Performed By: #### L IP, GFR, CMP, ANEU, CBC, ADIFF #### [address] [place] [place], [place] [address] MALBRon 08-10-2023 U Creatinine 182.9 mg/dL Normal 39.0-259.0 [facility] ([place]) Comment on above: Performed By: #### L IP, GFR, CMP, ANEU, CBC, ADIFF #### [address] [address] [address] U Microalb 3198 mcg/dL Normal [facility] ([place]) Comment on above: Performed By: #### L IP, GFR, CMP, ANEU, CBC, ADIFF #### [address] [address] U Ratio Alb/Cre 17 mcg/mg Normal 0-30 [facility] ([place]) Comment on above: Performed By: #### L IP, GFR, CMP, ANEU, CBC, ADIFF #### [address] [address] LABORATORYOrdered By: Mariela Khan on 12-03-2022 Appearance (U) Clear (12/03/22 12:49 PM) Invalid Interpretation Code Clear AO Auto Urine SS Bilirubin Ql (U) Negative (12/03/22 12:49 PM) Invalid Interpretation Code Negative AO Auto Urine SS Color (U) Yellow (12/03/22 12:49 PM) Invalid Interpretation Code AO Auto Urine SS Glucose Test strip (U) [Mass/Vol] Negative Invalid Interpretation Code Negativemg/ dL AO Auto Urine SS Hemoglobin Auto test strip (U) [Mass/Vol] Negative (12/03/22 12:49 PM) Invalid Interpretation Code Negative AO Auto Urine SS Ketones Ql (U) Negative Invalid Interpretation Code Negativemg/ dL AO Auto Urine SS UA Leuk Est Negative (12/03/22 12:49 PM) Invalid Interpretation Code Negative AO Auto Urine SS UA Nitrite Negative (12/03/22 12:49 PM) Invalid Interpretation Code Negative AO Auto Urine SS UA pH 7.0 (12/03/22 12:49 PM) Invalid Interpretation Code 5.0 - 8.0 AO Auto Urine SS UA Protein Negative Invalid Interpretation Code Negativemg/ dL AO Auto Urine SS UA Spec Grav 1.010 *ABN* (12/03/22 12:49 PM) Invalid Interpretation Code 1.015-1.025 AO Auto Urine SS UA Specimen Type Clean Catch (12/03/22 12:49 PM) Invalid Interpretation Code AO Auto Urine SS UA Urobilinogen 0.2 E.U./dL Invalid Interpretation Code 0.2-1.0E.U. /dL AO Auto Urine SS UAon 12-03-2022 Color (U) Yellow Normal [facility] ([place]) Comment on above: Performed By: #### L IP, GFR, CMP, ANEU, CBC, ADIFF #### [address] [address] Glucose (U) [Mass/Vol] Negative Normal Negative [facility] ([place]) Comment on above: Performed By: #### L IP, GFR, CMP, ANEU, CBC, ADIFF #### [address] [address] Ketones Ql (U) Negative Normal Negative [facility] ([place] Comment on above: Performed By: #### L IP, GFR, CMP, ANEU, CBC, ADIFF #### [address] [address] UA Appear Clear Normal Clear [facility] ([place] Comment on above: Performed By: #### L IP, GFR, CMP, ANEU, CBC, ADIFF #### [address] [address] UA Blood Negative Normal Negative [facility] ([place] Comment on above: Performed By: #### L IP, GFR, CMP, ANEU, CBC, ADIFF #### [address] [address] UA Leuk Est Negative Normal Negative [facility] ([place]) Comment on above: Performed By: #### L IP, GFR, CMP, ANEU, CBC, ADIFF #### [place] [address] UA Nitrite Negative Normal Negative [facility] ([place] Comment on above: Performed By: #### L IP, GFR, CMP, ANEU, CBC, ADIFF #### [place] [id number] UA pH 7.0 Normal 5.0 - 8.0 [facility] ([place]) Comment on above: Performed By: #### L IP, GFR, CMP, ANEU, CBC, ADIFF #### [place] [address] UA Protein Negative Normal Negative [facility] ([place] Comment on above: Performed By: #### L IP, GFR, CMP, ANEU, CBC, ADIFF #### [place] [address] UA Spec Grav 1.010 Abnormal 1.015-1.025 [facility] ([place] Comment on above: Performed By: #### L IP, GFR, CMP, ANEU, CBC, ADIFF #### [place] [address] UA Specimen Type Clean Catch Normal [facility] ([place] Comment on above: Performed By: #### L IP, GFR, CMP, ANEU, CBC, ADIFF #### [place] [address] UA Urobilinogen 0.2 E.U./dL Normal 0.2-1.0 [facility] ([place]) Comment on above: Performed By: #### L IP, GFR, CMP, ANEU, CBC, ADIFF #### [place] [address] Urobilinogen (U) [Mass/Vol] Negative Normal Negative [facility] ([place] Comment on above: Performed By: #### L IP, GFR, CMP, ANEU, CBC, ADIFF #### [place] [id number] CT ABDOMEN/PELVIS W/CONTRAST on 12-02-2022 CT ABDOMEN/PELVIS W/CONTRAST ORIGINAL EXAMINATION: CT OF THE ABDOMEN AND PELVIS WITH CONTRAST 12/02/2022 10:08 am TECHNIQUE: CT of the abdomen and pelvis was performed with the administration of intravenous contrast. Multiplanar reformatted images are provided for review. Automated exposure control, iterative reconstruction, and/or weight based adjustment of the mA/kV was utilized to reduce the radiation dose to as low as reasonably achievable. COMPARISON: None. HISTORY: ORDERING SYSTEM PROVIDED HISTORY: Reason for Exam: abdominal pain/rectal bleeding FINDINGS: There is a calcified granuloma within the right lower lobe. There is minimal pleural thickening within the bilateral lower lobes. Scattered hepatic cysts measuring up to 1.8 cm. Additional subcentimeter hepatic hypodensities are too small to characterize but statistically represent cysts/hemangiomas. Numerous calcified splenic granulomas. Adrenal glands are unremarkable. Small duodenal diverticulum noted. At the neck of the pancreas, there is a 7 mm hypodensity probably a small cyst. Symmetric nephrograms. The ureters are unremarkable. Circumferential bladder wall thickening. Nondilated loops of small bowel. A normal appendix is identified. There is colonic diverticulosis. There is a long segment of distal descending and sigmoid colon which demonstrates wall thickening and mild pericolonic inflammation. There is no adjacent drainable fluid collection or gross pneumoperitoneum. Atherosclerotic nonaneurysmal abdominal aorta. No lymphadenopathy is identified. There is a small right and tiny left fat containing inguinal hernias. Tiny fat containing umbilical hernia. The prostate is mildly enlarged. There are scattered phleboliths. No gross pneumoperitoneum. Multilevel degenerative changes of the spine without acute osseous abnormality. There is a nonaggressive sclerotic focus within the left L2 vertebral body which is favored to represent a bone island. Chronic bilateral rib deformities. IMPRESSION: Findings compatible with long segment colitis involving the distal descending and sigmoid colon. This is likely infectious/inflammatory in etiology. There is no adjacent drainable fluid collection or gross pneumoperitoneum. Circumferential bladder wall thickening may be on the basis of under distension versus cystitis. Correlation with urinalysis is recommended. An underlying element of chronic outlet obstruction is suspected. Colonic diverticulosis. Subcentimeter cystic lesion at the neck of the pancreas presumably a benign or low-grade cystic neoplasm versus sequela of remote pancreatitis. 1 year follow-up study recommended to reassess. Other chronic and incidental findings as above. I have personally reviewed the images of this examination and agree with the resident's findings and interpretations. Interpreted by: Pablo Moncada MD Preliminary Report By: Yaar Chavez Electronically signed By Pablo Moncada MD Dictated Date: 12/02/2022 10:13:06 AM Prelim Date: 12/02/2022 10:27:31 AM Sign Date: 12/02/2022 10:27:31 AM Ordering Provider: SUSAN Pacheco [facility] ([place]) PSAon 12-02-2022 Prostate Specific Antigen 3.17 ng/mL Normal 0.00-4.00 [facility]) Comment on above: Performed By: #### L IP, GFR, CMP, ANEU, CBC, ADIFF #### [address] [address] .Auto Diffon 12-01-2022 Basophil, Absolute 0.0 10 3/mcL Normal 0.0-0.2 [facility]) Comment on above: Performed By: #### L IP, GFR, CMP, ANEU, CBC, ADIFF #### [address] [address] Basophils/100 WBC (Bld) 0.4 % Normal 0.0-2.5 [facility]) Comment on above: Performed By: #### L IP, GFR, CMP, ANEU, CBC, ADIFF #### [address] [address] Eosinophil, Absolute 0.3 10 3/mcL Normal 0.0-0.4 [facility] ([place]) Comment on above: Performed By: #### L IP, GFR, CMP, ANEU, CBC, ADIFF #### [address] [address] Eosinophils/100 WBC (Bld) 2.7 % Normal 0.0-7.0 [facility]) Comment on above: Performed By: #### L IP, GFR, CMP, ANEU, CBC, ADIFF #### [address] [address] Lymphocyte, Absolute 1.7 10 3/mcL Normal 0.8-3.9 [facility] ([place]) Comment on above: Performed By: #### L IP, GFR, CMP, ANEU, CBC, ADIFF #### [address] [address] Lymphocytes/100 WBC (Bld) 17.5 % Normal 10.0-50.0 [facility] ([place]) Comment on above: Performed By: #### L IP, GFR, CMP, ANEU, CBC, ADIFF #### [address] [address] Monocyte, Absolute 0.6 10 3/mcL Normal 0.2-1.0 [facility] ([place]) Comment on above: Performed By: #### L IP, GFR, CMP, ANEU, CBC, ADIFF #### [address] [address] Monocytes/100 WBC (Bld) 5.7 % Normal 1.7-13.0 [facility] ([place]) Comment on above: Performed By: #### L IP, GFR, CMP, ANEU, CBC, ADIFF #### [address] [address] Neutrophils/100 WBC (Bld) 73.7 % Normal 37.0-80.0 [facility] ([place]) Comment on above: Performed By: #### L IP, GFR, CMP, ANEU, CBC, ADIFF #### [address] [address] .GFRon 12-01-2022 GFR 88 ml/min/1.73sqm Normal [facility] ([place]) Comment on above: Result Comment: GFR Population mean for , Non- Americans Ages 20-29 = 116 mL/min/1.73 sq.m. Ages 30-39 = 107 mL/min/1.73 sq.m. Ages 40-49 = 99 mL/min/1.73 sq.m. Ages 50-59 = 93 mL/min/1.73 sq.m. Ages 60-69 = 85 mL/min/1.73 sq.m. Ages 70+ = 75 mL/min/1.73 sq.m. Chronic Kidney Disease: Less than 60 mL/min/1.73 square meters End Stage Renal Disease: Less than 15 mL/min/1.73 square meters Performed By: #### L IP, GFR, CMP, ANEU, CBC, ADIFF #### [address] [address] GFR Non- 72 ml/min/1.73sqm Normal [facility] ([place]) Comment on above: Result Comment: GFR Population mean for , Non- Americans Ages 20-29 = 116 mL/min/1.73 sq.m. Ages 30-39 = 107 mL/min/1.73 sq.m. Ages 40-49 = 99 mL/min/1.73 sq.m. Ages 50-59 = 93 mL/min/1.73 sq.m. Ages 60-69 = 85 mL/min/1.73 sq.m. Ages 70+ = 75 mL/min/1.73 sq.m. Chronic Kidney Disease: Less than 60 mL/min/1.73 square meters End Stage Renal Disease: Less than 15 mL/min/1.73 square meters Performed By: #### L IP, GFR, CMP, ANEU, CBC, ADIFF #### [address] [address] .NEUABSon 12-01-2022 Neutrophil, Absolute 7.3 10 3/mcL High 2.9-6.2 [facility] ([place]) Comment on above: Performed By: #### L IP, GFR, CMP, ANEU, CBC, ADIFF #### [address] [address] CBCon 12-01-2022 Erythrocyte distribution width (RBC) [Ratio] 13.3 % Normal 11.5-14.5 [facility] ([place]) Comment on above: Performed By: #### L IP, GFR, CMP, ANEU, CBC, ADIFF #### [address] [address] Hematocrit (Bld) [Volume fraction] 41.9 % Low 42.0-52.0 [facility] ([place]) Comment on above: Performed By: #### L IP, GFR, CMP, ANEU, CBC, ADIFF #### [address] [address] Hgb 14.2 G/dL Normal 14.0-18.0 [facility] ([place]) Comment on above: Performed By: #### L IP, GFR, CMP, ANEU, CBC, ADIFF #### [address] [address] MCH (RBC) [Entitic mass] 30.9 pg Normal 27.0-31.2 [facility] ([place]) Comment on above: Performed By: #### L IP, GFR, CMP, ANEU, CBC, ADIFF #### [address] [address] MCHC 34.0 G/dL Normal 31.8-35.4 [facility] ([place]) Comment on above: Performed By: #### L IP, GFR, CMP, ANEU, CBC, ADIFF #### [address] [address] MCV (RBC) [Entitic vol] 91.0 fL Normal 80.0-94.0 [facility] ([place]) Comment on above: Performed By: #### L IP, GFR, CMP, ANEU, CBC, ADIFF #### [address] [address] Platelet 217 10 3/mcL Normal 130-400 [facility] ([place]) Comment on above: Performed By: #### L IP, GFR, CMP, ANEU, CBC, ADIFF #### [address] [address] Platelet mean volume (Bld) [Entitic vol] 8.5 fL Normal 7.4-10.4 [facility] ([place]) Comment on above: Performed By: #### L IP, GFR, CMP, ANEU, CBC, ADIFF #### [address] [address] RBC 4.60 10 6/mcL Normal 4.04-6.13 [facility] ([place]) Comment on above: Performed By: #### L IP, GFR, CMP, ANEU, CBC, ADIFF #### [address] [address] WBC 9.8 10 3/mcL Normal 4.6-10.8 [facility] ([place]) Comment on above: Performed By: #### L IP, GFR, CMP, ANEU, CBC, ADIFF #### [address] [address] CMPon 12-01-2022 Albumin Level 4.0 G/dL Normal 3.4-4.8 [facility] ([place]) Comment on above: Performed By: #### L IP, GFR, CMP, ANEU, CBC, ADIFF #### [address] [address] Albumin/Globulin [Mass ratio] 1.2 {ratio} Normal 1.1-2.5 [facility] ([place]) Comment on above: Performed By: #### L IP, GFR, CMP, ANEU, CBC, ADIFF #### [address] [address] ALP [Catalytic activity/Vol] 64 U/L Normal 40-135 [facility] ([place]) Comment on above: Performed By: #### L IP, GFR, CMP, ANEU, CBC, ADIFF #### [address] [address] ALT [Catalytic activity/Vol] 35 U/L Normal 16-63 [facility] ([place]) Comment on above: Performed By: #### L IP, GFR, CMP, ANEU, CBC, ADIFF #### [address] [address] AST [Catalytic activity/Vol] 19 U/L Normal 10-40 [facility] ([place]) Comment on above: Performed By: #### L IP, GFR, CMP, ANEU, CBC, ADIFF #### [address] [address] Bili Total 0.6 mg/dL Normal 0.2-1.0 [facility] ([place]) Comment on above: Result Comment: Use of this assay is not recommended for patients undergoing treatment with eltrombopag due to the potential for falsely elevated results. Performed By: #### L IP, GFR, CMP, ANEU, CBC, ADIFF #### [address] [address] BUN/Creatinine Ratio 17 ratio Normal 7-27 [facility] ([place]) Comment on above: Performed By: #### L IP, GFR, CMP, ANEU, CBC, ADIFF #### [address] [address] Calcium [Mass/Vol] 9.4 mg/dL Normal 8.4-10.2 [facility] ([place]) Comment on above: Performed By: #### L IP, GFR, CMP, ANEU, CBC, ADIFF #### [address] [address] Chloride [Moles/Vol] 102 mmol/L Normal 98-107 [facility]) Comment on above: Performed By: #### L IP, GFR, CMP, ANEU, CBC, ADIFF #### [address] [address] CO2 [Moles/Vol] 29 mmol/L Normal 23-31 [facility] ([place]) Comment on above: Performed By: #### L IP, GFR, CMP, ANEU, CBC, ADIFF #### [address] [address] Creatinine [Mass/Vol] 1.03 mg/dL Normal 0.70-1.30 [facility] ([place]) Comment on above: Performed By: #### L IP, GFR, CMP, ANEU, CBC, ADIFF #### [address] [address] Electrolyte Balance 8.0 mEq/L Normal 4.0-15.0 [facility] ([place]) Comment on above: Performed By: #### L IP, GFR, CMP, ANEU, CBC, ADIFF #### [address] [address] Globulin 3.2 G/dL Normal [facility] ([place]) Comment on above: Performed By: #### L IP, GFR, CMP, ANEU, CBC, ADIFF #### [address] [address] Glucose [Mass/Vol] 140 mg/dL High 80-115 [facility] ([place]) Comment on above: Performed By: #### L IP, GFR, CMP, ANEU, CBC, ADIFF #### [address] [address] Potassium [Moles/Vol] 5.7 mmol/L High 3.5-5.1 [facility] ([place]) Comment on above: Performed By: #### L IP, GFR, CMP, ANEU, CBC, ADIFF #### [address] [address] Sodium [Moles/Vol] 139 mmol/L Normal 136-145 [facility] ([place]) Comment on above: Performed By: #### L IP, GFR, CMP, ANEU, CBC, ADIFF #### [address] [address] Total Protein 7.2 G/dL Normal 6.4-8.2 [facility] ([place]) Comment on above: Performed By: #### L IP, GFR, CMP, ANEU, CBC, ADIFF #### [address] [address] Urea nitrogen [Mass/Vol] 17 mg/dL Normal 7-18 [facility] ([place]) Comment on above: Performed By: #### L IP, GFR, CMP, ANEU, CBC, ADIFF #### [address] [address] LIPon 12-01-2022 Lipase Level 238 U/L High 16-77 [facility] ([place]) Comment on above: Performed By: #### L IP, GFR, CMP, ANEU, CBC, ADIFF #### [address] [address] LABORATORYOrdered By: SYSTEM SYSTEM on 09-19-2022 Albumin BCP dye [Mass/Vol] 3.9 G/dL Invalid Interpretation Code 3.4 - 4.8 G/dL AO ADM SS Albumin/Globulin [Mass ratio] 1.2 {ratio} Invalid Interpretation Code 1.1 - 2.5 ratio AO ADM SS ALP [Catalytic activity/Vol] 70 U/L Invalid Interpretation Code 40 - 135 U/L AO ADM SS ALT With P-5'-P [Catalytic activity/Vol] 30 U/L Invalid Interpretation Code 16 - 63 U/L AO ADM SS AST With P-5'-P [Catalytic activity/Vol] 26 U/L Invalid Interpretation Code 10 - 40 U/L AO ADM SS Bilirubin [Mass/Vol] 0.5 mg/dL Invalid Interpretation Code 0.2 - 1.0 mg/dL AO ADM SS Calcium [Mass/Vol] 9.2 mg/dL Invalid Interpretation Code 8.4 - 10.2 mg/dL AO ADM SS Chloride [Moles/Vol] 102 mmol/L Invalid Interpretation Code 98 - 107 mmol/L AO ADM SS CO2 [Moles/Vol] 30 mmol/L Invalid Interpretation Code 23 - 31 mmol/L AO ADM SS Creatinine [Mass/Vol] 0.93 mg/dL Invalid Interpretation Code 0.70 - 1.30 mg/dL AO ADM SS Electrolyte Balance 7.0 mEq/L Invalid Interpretation Code 4.0 - 15.0 mEq/L AO ADM SS GFR/1.73 sq M.predicted among blacks MDRD (S/P/Bld) [Vol rate/Area] 99 ml/min/1.73sqm Invalid Interpretation Code AO Chemistry S GFR/1.73 sq M.predicted among non-blacks MDRD (S/P/Bld) [Vol rate/Area] 81 ml/min/1.73sqm Invalid Interpretation Code AO Chemistry S Globulin 3.3 G/dL Invalid Interpretation Code AO ADM SS Glucose [Mass/Vol] 169 mg/dL Invalid Interpretation Code 80 - 115 mg/dL AO ADM SS HbA1c (Bld) [Mass fraction] 7.4 % Invalid Interpretation Code 4.3 - 6.4 % AO ADM SS Potassium [Moles/Vol] 5.8 mmol/L Invalid Interpretation Code 3.5 - 5.1 mmol/L AO ADM SS Protein [Mass/Vol] 7.2 G/dL Invalid Interpretation Code 6.4 - 8.2 G/dL AO ADM SS Sodium [Moles/Vol] 139 mmol/L Invalid Interpretation Code 136 - 145 mmol/L AO ADM SS Urea nitrogen [Mass/Vol] 18 mg/dL Invalid Interpretation Code 7 - 18 mg/dL AO ADM SS Urea nitrogen/Creatinine [Mass ratio] 19 ratio Invalid Interpretation Code 7 - 27 ratio AO ADM SS LABORATORYOrdered By: Radha Doyle on 09-19-2022 Cholesterol [Mass/Vol] 188 mg/dL Invalid Interpretation Code 0 - 200 mg/dL AO ADM SS Cholesterol in HDL [Mass/Vol] 38 mg/dL Invalid Interpretation Code 40 - 60 mg/dL AO ADM SS Cholesterol in LDL [Mass/Vol] 107 mg/dL Invalid Interpretation Code 0 - 130 mg/dL AO ADM SS Triglyceride [Mass/Vol] 215 mg/dL Invalid Interpretation Code 0 - 150 mg/dL AO ADM SS LABORATORYOrdered By: Yasmine Marte on 03-26-2022 Albumin BCP dye [Mass/Vol] 4.0 G/dL Invalid Interpretation Code 3.4 - 4.8 G/dL AO ADM SS Albumin/Globulin [Mass ratio] 1.3 {ratio} Invalid Interpretation Code 1.1 - 2.5 ratio AO ADM SS ALP [Catalytic activity/Vol] 68 U/L Invalid Interpretation Code 40 - 135 U/L AO ADM SS ALT With P-5'-P [Catalytic activity/Vol] 33 U/L Invalid Interpretation Code 16 - 63 U/L AO ADM SS AST With P-5'-P [Catalytic activity/Vol] 15 U/L Invalid Interpretation Code 10 - 40 U/L AO ADM SS Bilirubin [Mass/Vol] 0.5 mg/dL Invalid Interpretation Code 0.2 - 1.0 mg/dL AO ADM SS Calcium [Mass/Vol] 8.7 mg/dL Invalid Interpretation Code 8.4 - 10.2 mg/dL AO ADM SS Chloride [Moles/Vol] 100 mmol/L Invalid Interpretation Code 98 - 107 mmol/L AO ADM SS Cholesterol [Mass/Vol] 186 mg/dL Invalid Interpretation Code 0 - 200 mg/dL AO ADM SS Cholesterol in HDL [Mass/Vol] 36 mg/dL Invalid Interpretation Code 40 - 60 mg/dL AO ADM SS Cholesterol in LDL [Mass/Vol] 107 mg/dL Invalid Interpretation Code 0 - 130 mg/dL AO ADM SS CO2 [Moles/Vol] 31 mmol/L Invalid Interpretation Code 23 - 31 mmol/L AO ADM SS Creatinine [Mass/Vol] 1.05 mg/dL Invalid Interpretation Code 0.70 - 1.30 mg/dL AO ADM SS Electrolyte Balance 6.0 mEq/L Invalid Interpretation Code 4.0 - 15.0 mEq/L AO ADM SS Globulin 3.1 G/dL Invalid Interpretation Code AO ADM SS Glucose [Mass/Vol] 200 mg/dL Invalid Interpretation Code 80 - 115 mg/dL AO ADM SS HbA1c (Bld) [Mass fraction] 9.5 % Invalid Interpretation Code 4.3 - 6.4 % AO ADM SS Potassium [Moles/Vol] 5.2 mmol/L Invalid Interpretation Code 3.5 - 5.1 mmol/L AO ADM SS Protein [Mass/Vol] 7.1 G/dL Invalid Interpretation Code 6.4 - 8.2 G/dL AO ADM SS Sodium [Moles/Vol] 137 mmol/L Invalid Interpretation Code 136 - 145 mmol/L AO ADM SS Triglyceride [Mass/Vol] 217 mg/dL Invalid Interpretation Code 0 - 150 mg/dL AO ADM SS Urea nitrogen [Mass/Vol] 18 mg/dL Invalid Interpretation Code 7 - 18 mg/dL AO ADM SS Urea nitrogen/Creatinine [Mass ratio] 17 ratio Invalid Interpretation Code 7 - 27 ratio AO ADM SS LABORATORYOrdered By: SYSTEM SYSTEM on 03-26-2022 GFR 86 ml/min/1.73sqm Invalid Interpretation Code AO Chemistry S GFR Non- 71 ml/min/1.73sqm Invalid Interpretation Code AO Chemistry S LABORATORYOrdered By: Radha Doyle on 03-26-2022 Prostate specific Ag [Mass/Vol] 1.98 ng/mL Invalid Interpretation Code 0.00 - 4.00 ng/mL AO ADM SS Discharge Instructionon 09-06 [facility] [id number] [place], [place] [address]Wupbhjbph Uwnvpnpsfxl32/15/18 1441MR#: [id number] Acct: [id number]: DAVY MIRELES Rep #: [id number]: 1955 61 From: Gary Mancerayenain MDPCP: Tolu Mcmillan MD Status: PRE ERED Disposition- Plan for ED Patient:Chief Complaint: Foreign BodyInstructions: ED Foreign Body Soft TissueReferrals:Geoffrey Mcmillan MD [Primary Care Provider] -Bob Flowers MD [STAFF PHYSICIAN] -Dennis Palacio MD [STAFF PHYSICIAN] -Additional Instructions:Follow-up with Dr. Green or Dr. Palacio for further evaluation of left thumbWhat to do if you have ProblemsFor any increased pain, shortness of breath, bleeding, nausea or vomiting, chest pain, or anyunexpected problems, contact your Primary Care Provider. Call [facility] ([phone])or report to the closest Emergency Room.Call 911 if necessary.09/20/17 1443 Date Gary Calderón [facility] Signature (If Indicated): Date CC: Tolu Mcmillan MD Normal [facility] Emergency Department Summary on 09-20-2017 Emergency Department Summary [facility] [id number] [facility] [place], [place] [address]Yhyqorqav Department Elmdfuj72/15/18 1435MR#: [id number] Acct: [id number]: DAVY MIRELES Rep #: [id number]: 1955 61 From: Gary Calderón MDPCP: Tolu Mcmillan MD Status: DEP ER- ER Visit SummaryDate of Service: 09/20/17Chief Complaint: [] 2 week old foreign body left thumbHistory of Present Illness: The patient is a 61 M [] patient reports 2 weeks [place] cactus spine struck him to the right thumb possibly 2 he believes it isretained, he is vjla-midw-jidrcoyy he reports intermittent drainage to the area no redness orwarmth he reports that lesion simply will not improve and he presents for evaluation his othercomplaintsPhysical Examination: [] There is a blister type lesion likely represents possible insertionpoint for 1 or 2 of these cactus spines, there is some nodularity to the flexor surface of thethumb but no warmth no redness he is able to flex at the IP joint and MCP joint the nail isintact there is no signs of gross tenosynovitis or felon or anything acuteTest Results: []Emergency Department Course and Treatment: [] All the above the patient have explained thislesions been there for 2 weeks it is best that he be seen by hand services for furthermanagement and x-rays be obtained I recommended antibiotics but he declined that he will bereferred to Dr. ma be the x-ray will be obtained he will be given a copy of the film and sriramll see Dr. flowers for outpatient management and return for change in symptomsTreatment Plan: []Disposition: [] Home stableImpression: [] 2-week-old retained foreign body as above left thumbThis note was generated with [employer] dictation software. It may contain incorrect words,spelling, and punctuation that were not noted in review of the chart prior to signingED Disposition- Plan for ED Patient:Chief Complaint: Foreign BodyReferrals:Greg Mcmillan MD [Primary Care Provider] -What to do if you have ProblemsFor any increased pain, shortness of breath, bleeding, nausea or vomiting, chest pain, or anyunexpected problems, contact your Primary Care Provider. Call [facility] ([phone])or report to the closest Emergency Room.Call 911 if necessary.09/20/17 1633 Date Gary Jwayyed [facility] Signature (If Indicated): Date CC: Tolu Mcmillan MD [facility] Hand Min 3 Viewson 8 Hand Min 3 [facility] [id number] [place] [address]Kqio Min 3 ViewsMR#: [id number] Acct: [id number]: DAVY MIRELES Rep #: [id number]: 1955 M 61 From: Angélica Mendoza MDPCP: Tolu Mcmillan MD Status: DEP ERStudy: Hand Min 3 Views Date of Exam: 09/20/17Exam# [id number] Ordering Dr: Gary Calderón MDSTUDY: X-RAY - LEFT HANDREASON FOR EXAM: Male, 61 years old. Address post fall on a cap this 2weeks ago concerning performed bodyTECHNIQUE: 3 view(s) of the hand.COMPARISON: None. FINDINGS:Nor mal radiocarpal articulation. Normal distal radioulnar joint.Normal visualized carpal bones. Normal carpal articulationsNormal carpometacarpal articulation of the thumb. 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 Normal interphalangeal joint of the thumb. 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 A radiopaque foreign body is notdefinitively identified. There does appear to be mild soft tissueswelling.Normal metacarpophalangeal joints of the second through fifth fingers.Normal proximal and distal interphalangeal joints of the second throughfifth fingers. Normal phalanges of the second through fifth fingers.The soft tissue structures are unremarkable. ORDE R #: [id number] RAD/Hand Min 3 ViewsIMPRESSION:Arthrosis. 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 Novisualized radiopaque foreign body.Mild soft tissue swelling.Electronically Signed:Angélica Mendoza MD at 16:19 EDTTel , Service support , EG: MD Erin Calderón; Tolu Mcmillan MD Motorcycle Mechanic:Signed Normal [facility] Vital Signs Date Time Vital Sign Value Performing Clinician Kaei kristofer 11-17-2024 12:35-0400 Diastolic blood pressure 74 mm[Hg] Dr. Dm Burrows MD Work Phone: 5(492)[phone] [place] [address] 11-17-2024 12:35-0400 Heart rate 67 /min Dr. Dm Burrows MD Work Phone: 2(482)[phone] [place] [address] 11-17-2024 12:35-0400 Respiratory rate 16 /min Dr. Dm Burrows MD Work Phone: 8(025)[phone] [place] [address] 11-17-2024 12:35-0400 SaO2% (BldA) [Mass fraction] 99 % Dr. Dm Burrows MD Work Phone: 5(497)407-318323 [place] [address] 11-17-2024 12:35-0400 Systolic blood pressure 112 mm[Hg] Dr. Dm Burrows MD Work Phone: 8(314)891-789621 [address] 11-17-2024 11:05-0400 Body height 182.[address] Dm Burrows MD Work Phone: 9(778)156-893921 [address] 11-17-2024 11:05-0400 Body mass index (BMI) [Ratio] 25.9 kg/m2 Dr. Dm Burrows MD Work Phone: 1(885)991-824323 [place] [address] 11-17-2024 11:05-0400 Body temperature 97.9 [degF] Dr. Dm Burrows MD Work Phone: 0(430)249-575523 [place] [address] 11-17-2024 11:05-0400 Body weight 86.[address] Dm Burrows MD Work Phone: [facility] Encounters Encounter Date Encounter Type Care Provider Facility Start: 11-17-2024 End: 11-17-2024 Emergency department patient visit Dr. Dm Burrows MD Work Phone: -Emergency Department Work Phone: Start: 09-28-2024 End: 09-28-[address] CY MELVIN Facility:[facility] Start: 09-28-2024 End: 09-28-[address] CY MELVIN [facility] Start: 11-10-2023 End: 11-10-2023 ambulatory SWATI VARELA [employer] Facility:[facility] Start: 08-10-2023 End: 08-10-2023 ambulatory SWATI VARELA [employer] Facility:[facility] Start: 08-10-2023 End: 08-10-2023 Patient encounter procedure SWATI VARELA [employer] [facility] Start: 12-03-2022 End: 12-03-2022 ambulatory SWATI VARELA [employer] Facility:[facility] Start: 12-03-2022 End: 12-03-2022 Patient encounter procedure SWATI VARELA [employer] [facility] Start: 12-02-2022 End: 12-02-2022 ambulatory SUSAN ALCOCER [employer] Facility:[facility] Start: 12-01-2022 End: 12-01-2022 ambulatory SUSAN ALCOCER [employer] Facility:[facility] Start: 09-19-2022 End: 09-19-2022 Patient encounter procedure SWATI VARELA [employer] [facility] Start: 03-26-2022 End: 03-26-2022 Patient encounter procedure SWATI VARELA [employer] [facility] Start: 09-20-2017 End: 09-20-2017 Emergency department patient visit Tolu Deyanira Facility:[facility] Procedures Date Procedure Procedure Detail Performing Clinician Start: 11-17-2024 Plain X-ray of finger Nain Burrows MD Work Phone: Start: 10-16-2017 Colonoscopy SWATI ALVARADO [employer] Arthroscopy of knee SWATI VARELA [employer] Comment on above: SAADIA Plan of Treatment Date Care Activity Detail Author Start: 11-17-2024 [facility] Patient Education ED Laceration, Hand: All Closures [facility] Work Phone: Patient referral [facility] Work Phone: Immunizations Immunization Date Immunization Notes Care Provider Shirley barrios 11-17-2024 tetanus toxoid, redu georgina diphtheria toxoid, and acellular pertussis vaccine, adsorbed Dr. Dm Burrows MD Work Phone: [facility] Payers Date Payer Category Payer Unknown [id number] 2022 Medicare [id number] 2022 Unknown [id number] 2020 Medicare [id number] 2017 Self-pay 1955 Unknown [id number] 2.16.8 [id number] 1955 Unknown [id number] 2.16.8 [id number] 1955 Unknown [id number] 2.16.8 [id number] 1955 Unknown [id number] 2.16.8 [id number] 1955 Unknown [id number] 2.16.8 [id number] 1955 Unknown [id number] 2.16.8 [id number] Unknown ANTHHERMAN [id number] Unknown COMMERCIAL OTHER [id number] Social History Date Type Detail Facility Start: 06-07-2020 End: 11-17-2024 Tobacco smoking status Never smoked tobacco (finding) [facility] Start: 1955 Sex Assigned At Male A [facility] Sexual Orientation Jenelle alvarez [place] [facility] Start: 05-02-2019 Sex Male (finding) [facility] Clinical Notes 12-05-2022 to 11-17-2024 Note Date & Type Note Facility 11-17-2024 Radiology Diagnostic study note [facility] Imaging Services [address] [place], [place] [address] Finger(s) Min 2 Views MR#: [id number] Acct: [id number] Name: DAVY MIRELES Rep #: [id number] : 1955 M 68 From: Billy Steele MD PCP: Status: PRE ER Study:Finger(s) Min 2 Views Date of Exam: 11/17/24 Exam# [id number] Ordering Dr: Rebecca Titus PROCEDURE: FINGER(S) MIN 2 VIEWS 11/17/2024 REASON FOR EXAM: LACERATION INDEX FINGER TECHNIQUE: Three-view left 2nd finger: COMPARISON: None. RAD/Finger(s) Min 2 Views IMPRESSION: No radiopaque foreign body is seen. Mild degenerative changes seen of the visualized left 2nd and 3rd distal interphalangeal joints and of the partially visualized 1st carpal-metacarpal joint. Minimal degenerative changes are seen elsewhere. No fracture or dislocation is noted. If clinical concern persists, short-term follow-up imaging may be obtained to rule out a currently occult fracture. Reading Location: [address] CC: CONCEPCIÓN Gaitan ~ Motorcycle Mechanic: Signed [facility] 09-28-2024 Note Exam Date Time Procedure Performing Provider Status 09/28/24 9:40 AM XR Spine Lumbar W/Ob liques 4 Views ABE COLINDRES DO; Auth (Verified) [id number] ORIGINAL EXAMINATION: 5 XRAY VIEWS OF THE LUMBAR SPINE 09/28/2024 9:41 am COMPARISON: None. HISTORY: ORDERING SYSTEM PROVIDED HISTORY: Reason for Exam: sciatica Low back pain FINDINGS: 5 degree dextroscoliosis noted at the thoracolumbar junction. There is mild generalized disc space narrowing throughout the lumbar spine and moderate diffuse facet arthropathy. No spondylolysis, spondylolisthesis or acute vertebral body fracture apparent. Sacroiliac joints are preserved. IMPRESSION: 5 degree dextroscoliosis thoracolumbar junction and diffuse degenerative disc disease and facet arthropathy. Interpreted by: Abe Colindres DO Preliminary Report By: Abe Colindres DO Electronically signed By Abe Colindres DO Dictated Date: 09/28/2024 12:59:46 PM Prelim Date: 09/28/2024 1:00:34 PM Sign Date: 09/28/2024 1:00:34 PM Ordering Provider: CY MELVIN [facility]01-01-2025 Evaluation + Plan note Future Scheduled Tests Laboratory* Prostate Specific Antigen 06/08/24 * Prostate Specific Antigen 05/12/24 * A1C Hemoglobin 06/08/24 * Lipid Profile 06/08/24 * Complete Metabolic Panel 06/08/24 [facility] 06-30-2023 Note. MICRO - Microbiology PROCEDURE: Urine Culture [*1] SOURCE: Urine, Clean Catch BODY SITE: COLLECTED DATE/TIME: 12/03/2022 12:49 EDT RECEIVED DATE/TIME: 12/03/2022 20:26 EDT START DATE/TIME: 12/03/2022 20:27 EDT FREE TEXT SOURCE: FINAL REPORTS Final Report [] Verified Date/Time/Personnel: 12/05/2022 07:37 EDT No growth at 48 hours. PRELIMINARY REPORTS Preliminary Report [] Verified Date/Time/Personnel: 12/04/2022 10:42 EDT No growth to date Performing Locations *1: This test was performed at: [facility], [address] [place] [address], [id number] , [facility] ([place])Evaluation + Plan note Future Appointments Appointment Date:06/23/2022 11:00:00 AM Scheduled Provider:SWATI VARELA Location:[facility] Appointment Type:PC OV [facility] Evaluation + Plan note Future Appointments Appointment Date:09/22/2022 11:30:00 AM Scheduled Provider:SWATI VARELA Location:[facility] Appointment Type:PC OV [facility] Evaluation + Plan note Future Appointments Appointment Date:12/22/2022 10:30:00 AM Scheduled Provider:SWATI VARELA Location:[facility] Appointment Type:PC OV Diagnostic Tests Pending * Urine Culture 12/03/22 [facility] Evaluation + Plan note Future Appointments Appointment Date:08/11/2023 11:30:00 AM Scheduled Provider:SWATI VARELA Location:[facility] Appointment Type:PC OV Appointment Date:08/17/2023 11:00:00 AM Scheduled Provider:SWATI VARELA Location:[facility] Appointment Type:PC OV Lab Check Future Scheduled Tests Laboratory* Basic Metabolic Panel 12/22/22 [facility] Evaluation noteNo assessment information available [facility] Work Phone: Hospital course Narrative No data available for this section [facility] Discharge instructions No data available for this section [facility] Discharge instructions Additional Instructions Follow-up with your PCP in 7 days for suture removal, return for any signs of infection.[facility] Work Phone: Progress note No data available for this section [facility] Reason for referral (narrative)No reason for referral [facility] Work Phone: Summary Purpose Family History No Family History Records Found No data available for this section No Family History Records FoundNo Family History Records Found No data available for this section Advance Directives Advance Directive Response Recorded Date/ Time Do you have a Healthcare Power of Manager Of Corporate? No November 17, 2024 12:32pm Chief Complaint and Reason for Visit Chief Complaint Admit Date LAC November 17, 2024 11:0 5am Additional Source Comments (unrecognized sect ion and content) No Status Records FoundNo Status Records FoundNo Status Records Found INFORMATION SOURCE (unrecogn ized section and content) DATE CREATED AUTHOR 11/26/2017 [facility] DATE CREATED AUTHOR AUTHOR'S ORGANIZ ATION 11/13/2023 [facility] ([place]) DATE CREATED AUTHOR AUTHOR'S ORGANIZ ATION 10/01/2024 [facility] Care Team (unrecognized sect ion and content) Care Team Personnel Name: SWATI VARELA APRN-MAZIN Position: P4 Advanced Practice Nurse Med Service: Active Provider Member Role: Primary Care Physician Address: Address: [address] [facility] [place] [address]- [place] Patient Care team informatio n (unrecognized section and content) Team Status: Active Member Role Status Dates Swati Varela ASSEMBLER [employer], 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 Dm Burrows MD Referring Provider Active S tart: November 17, 2024 End: November 17, 2024 Dr. Dm Burrows MD Emergency Provider Active S tart: November 17, 2024 End: November 17, 2024 Swati Varela [employer]SEM[employer], ASSEMBLER [employer]-C Primary Care Provider Active Start: November 17, 2024 End: November 17, 2024 Goals (unrecognized section and content) Goals may be documented in a n alternate section FOR RECORDS PERTAINING TO PATIENTS WHO ARE OR HAVE BEEN ENROLLED IN A CHEMICAL DEPENDENCY/SUBSTANCEABUSE PROGRAM, SOME INFORMATION MAY BE OMITTED. This clinical summary was aggregated from multiple sources. Caution should be exercised in using it in the provision of clinical care. This summary normalizes information from multiple sources, and as a consequence, information in this document may materially change the coding, format and clinical context of patient data. In addition, data may be omitted in some cases. CLINICAL DECISIONS SHOULD BE BASED ON THE PRIMARY CLINICAL RECORDS. [facility] [employer] [facility]. provides no warranty or guarantee of the accuracy or completeness of information in this document.
== END 2024-11-17 12:36 | disposition home or self-care (01) ==
PROVIDERS: Emergency Provider Emergency Medicine; PCP Nurse Practitioner Family; Referring Provider Emergency Medicine; Visit Provider Emergency Medicine
DX: S61.211A Laceration without foreign body of left index finger without damage to nail, initial encounter (principal); W31.89XA Contact with other specified machinery, initial encounter; Y93.89 Activity, other specified; Z23 Encounter for immunization
CPT/HCPCS: 12001; 73140; 90471; 90715; 99283